=== PATIENT | female | born 1955 | race Caucasian/White ===

== ENCOUNTER 2017-03-30 11:34 | Emergency (ER) | payer OTHER ==
[2017-03-30 12:20] LABS: ABSOLUTE BASOPHIL COUNT 0 /CUMM (0.0-0.2); ABSOLUTE EOSINOPHIL COUNT 0.1 /CUMM (0.0-0.7); ABSOLUTE GRANULOCYTE CT 8.6 /CUMM (1.4-6.5); ABSOLUTE LYMPH COUNT 1.7 /CUMM (1.2-3.4); ABSOLUTE MONOCYTE COUNT 0.5 /CUMM (0.10-0.60); BASOPHIL % 0.3 % (0.0-2.0); EOSINOPHIL % 0.6 % (0-5); GRANULOCYTE % 78.4 % (42.2-75.2); HEMATOCRIT 41.5 % (37-47); MEAN CORPUSCULAR HGB 28.2 PG (27.0-31.0); MEAN CORPUSCULAR HGB CONC 33.3 G/DL (33.0-37.0); MEAN CORPUSCULAR VOLUME 84.7 FL (81.0-99.0); MEAN PLATELET VOLUME 8.1 FL (7.4-10.4); PLATELET COUNT 489 /CUMM (130-400); RBC DISTRIBUTION WIDTH 13.5 % (11.5-14.5); RED BLOOD CELL CT 4.89 /CUMM (4.20-5.40)
--- NOTE | 2017-03-30 13:06 | ED GI/GU/ABDOMINAL COMPLAINT ---
History of Present Illness General Chief Complaint: Abdominal Pain/Flank Pain Stated Complaint: R FLANK PAIN Source: patient Exam Limitations: no limitations Vital Signs & Intake/Output Vital Signs & Intake/Output Vital Signs Date Time Temp Pulse Resp B/P B/P Pulse O2 O2 Flow FiO2 Mean Ox Delivery Rate 03/30 1417 96.6 92 16 115/66 95 Room Air 03/30 1202 97.2 116 18 137/89 97 Room Air Allergies Coded Allergies: Penicillins (Severe, DIFFICULTY BREATHING 03/30/17) Reconcile Medications Ciprofloxacin HCl (Cipro) 500 MG TABLET 1 TAB PO BID DIVERTICULTIIS Metronidazole (Flagyl) 500 MG TABLET 1 TAB PO BID DIVERTIULITIS Tylenol With Codeine (Tylenol With Codeine #3 Tablet) 300 MG-30 MG TABLET 1 TAB PO Q4-6 PRN PRN PAIN Triage Note: PT C/O RT FLANK PAIN RADIATING INTO GROIN. WAS DX WITH UTI ON FRIDAY BY HER PCP AND PUT ON CIPRO. IS HAVING INCREASED FREQUENCY URINTION. HAS HX OF KIDNEY STONES WELL. Triage Nurses Notes Reviewed? yes LMP (ages 10-50): post menopausal, unknown ? n Is pt currently ? No Onset: Abrupt Duration: day(s): (2-3), constant, continues in ED, getting worse Timing: single episode today Quality/Severity: cramping, moderate, sharpness Severity Numbers: 7 Location: left lower quadrant, right flank, right lower quadrant, suprapubic Radiation: groin (rt groin) Activities at Onset: none Prior Abdominal Problems: similar symptoms (kidney stones) Past Sexual History: Unobtainable at this time No Modifying Factors: none Modifying Factors: Worsens With: movement, palpation. Associated Symptoms: abdominal pain, urinary frequency (and urgency ) HPI: 62-year-old female past medical history of frequent UTIs presents for evaluation of abdominal pain frequency urgency for the past 3 days. Patient states symptoms started 3 days ago she went to her primary care doctor and was diagnosed with a urinary tract infection. She was treated with 3 days of Cipro her last dose was today. She states that she continues to have pain mostly in her right flank right lower quadrant superpubic area. She describes this as cramping and rates it as a 7 out of 10. She does not take any pain medicine. She denies any fevers or chills. The pain radiates into the right groin. She does have a history of kidney stones and feels like this is somewhat similar. She does report some nausea but no vomiting or diarrhea. No vaginal discharge or bleeding. No melena or bright red blood per rectum. No recent surgeries. No chest pain or shortness of breath. (Fransico Velez) Past History Travel History Traveled to [place] past 21 day No Medical History Any Pertinent Medical History? see below for history Renal: KIDNEY STONES UTI'S Surgical History Surgical History: non-contributory Psychosocial History What is your primary language Romanian Tobacco Use: Never used Family History Hx Contributory? No (Fransico Velez) Review of Systems Review of Systems Constitutional: Reports: no symptoms. EENTM: Reports: no symptoms. Respiratory: Reports: no symptoms. Cardiovascular: Reports: no symptoms. GI: Reports: see HPI, abdominal pain, nausea. Genitourinary: Reports: see HPI, frequency, hematuria, urgency. Musculoskeletal: Reports: see HPI, back pain. Skin: Reports: no symptoms. Neurological/Psychological: Reports: no symptoms. Hematologic/Endocrine: Reports: no symptoms. Immunologic/Allergic: Reports: no symptoms. All Other Systems: Reviewed and Negative (Fransico Velez) Physical Exam Physical Exam General Appearance: well developed/nourished, no apparent distress, alert, awake Head: atraumatic, normal appearance Eyes: Bilateral: normal appearance, PERRL, EOMI, normal inspection. Ears, Nose, Throat, Mouth: hearing grossly normal, moist mucous membrane Neck: normal inspection, supple, full range of motion Respiratory: normal breath sounds, chest non-tender, no respiratory distress, lungs clear Cardiovascular: regular rate/rhythm, normal peripheral pulses Peripheral Pulses: 2+ radial (R), 2+ radial (L) Gastrointestinal: normal bowel sounds, soft, no organomegaly, tenderness (rt flank, suprapubic rlq) Back: normal inspection, normal range of motion, no vertebral tenderness, no cvat Extremities: normal range of motion, no edema Neurologic/Psych: no motor/sensory deficits, awake, alert, oriented x 3, normal gait, normal mood/affect Skin: intact, normal color, warm/dry Core Measures ACS in differential dx? No Sepsis Present: No Sepsis Focused Exam Completed? No (Fransico Velez) Progress Differential Diagnosis: appendicitis, biliary colic, bowel obstruction, cholecystitis, diverticulitis, gastritis, kidney stone, ovarian cyst, ovarian torsion, pancreatitis, SBO, UTI/pyelo Plan of Care: Orders Procedure Date/time Status URINALYSIS 03/30 1146 Complete COMPREHENSIVE METABOLIC PANEL 03/30 1146 Complete CBC WITHOUT DIFFERENTIAL 03/30 1146 Complete Laboratory Tests 03/30/17 1219: Urinalysis LIGHT H, Urine Color STRAW, Urine Clarity CLEAR, Urine pH 6.5, Ur Specific Calcium <= 1.005, Urine Protein NEG, Urine Ketones NEG, Urine Nitrite NEG, Urine Bilirubin NEG, Urine Urobilinogen 0.2, Ur Leukocyte Esterase SMALL H , Ur Microscopic SEDIMENT EXAMINED, Urine RBC 1-3, Urine WBC 5-10 H, Ur Epithelial Cells FEW, Urine Bacteria RARE H, Urine Mucus RARE, Urine Hemoglobin TRACE-INTACT, Urine Glucose NEG 03/30/17 1208: Anion Gap 16, Estimated GFR > 60, BUN/Creatinine Ratio 14.3, Glucose 97, Calcium 10.0, Total Bilirubin 0.3, AST 29, ALT 39, Alkaline Phosphatase 95, Total Protein 8.2, Albumin 4.6, Globulin 3.6, Albumin/Globulin Ratio 1.3, CBC w Diff NO MAN DIFF REQ, RBC 4.89, MCV 84.7, MCH 28.2, MCHC 33.3, RDW 13.5, MPV 8.1, Gran % 78.4 H, Lymphocytes % 15.8 L, Monocytes % 4.9, Eosinophils % 0.6, Basophils % 0.3, Absolute Granulocytes 8.6 H, Absolute Lymphocytes 1.7, Absolute Monocytes 0.5, Absolute Eosinophils 0.1, Absolute Basophils 0 Patient seen and evaluated. She has pain in her right flank and right lower quadrant it's pubic area. She also reports urinary frequency and urgency. She is taking Cipro for the past 3 days. Blood work shows a mildly elevated white blood cell count of 11 with a left shift. CT scan shows evidence of acute diverticulitis of the descending colon. Reevaluation of patient's abdomen does show some mild left lower quadrant tenderness. No rebound or guarding. No kidney stones. Patient will be treated with Cipro and Flagyl for possible acute diverticulitis. Follow-up with primary care doctor and gastroenterology. Patient appears clinically well she is able to tolerate food and fluids here. Discussed return precautions in detail. Patient appears chronically well and agrees the plan. Diagnostic Imaging: Viewed by Me: CT Scan. Discussed w/RAD: CT Scan. Radiology Impression: PATIENT: ADDY JENKINS PRESENT AGE: 62 PATIENT ACCOUNT NO: [id number] : 57 LOCATION: [facility] ORDERING PHYSICIAN: Fransico TERRAZAS SERVICE DATE: 03/30/17 EXAM TYPE: CAT - CT ABD & PELVIS W/O IV CONTRAS EXAMINATION: CT ABDOMEN AND PELVIS WITHOUT CONTRAST CLINICAL INFORMATION: Right flank pain radiating to the right lower quadrant and right groin. COMPARISON: None available. TECHNIQUE: Multidetector volumetric imaging was performed from the superior aspect of the liver through the pubic symphysis. Sagittal and coronal reformatted images were obtained on the technologist's workstation. FINDINGS: The lung bases are clear. Limited evaluation of the unenhanced liver, spleen, adrenal glands, gallbladder, and pancreas reveals no definite abnormality. The kidneys are symmetric in size without evidence of hydronephrosis or nephrolithiasis. There is focal inflammation surrounding a diverticulum along the dorsal aspect of the descending colon on image 33 of series 2 suggesting acute diverticulitis. There is no pericolonic abscess and there is no free air. There is diffuse colonic diverticulosis. The appendix is normal. There is no free air and there is no intra-abdominal free fluid. No mesenteric or retroperitoneal adenopathy. The pelvic viscera are normal. No pelvic adenopathy. No free fluid within the pelvis. There are no acute osseous abnormalities. There is multilevel degenerative disc disease and facet arthropathy throughout the lumbar spine. No significant soft tissue abnormality. IMPRESSION: - There is focal inflammation surrounding a diverticulum along the dorsal aspect of the descending colon on image 33 of series 2 suggesting acute diverticulitis. There is no pericolonic abscess and there is no free air. - There are no radiopaque renal or ureteral calculi. No hydroureteronephrosis. The appendix is normal. DICTATED BY: Miguel A Gu MD DATE/TIME DICTATED:03/30/171411 CLIENT SERVICE SUPERVISOR:JEANNE DATE/ TIME TRANSCRIBED:03/30/171411 CONFIDENTIAL, DO NOT COPY WITHOUT APPROPRIATE AUTHORIZATION. Initial ED EKG: none (Narayan TERRAZAS,Fransico) Departure Departure Disposition: HOME OR SELF CARE Condition: Stable Clinical Impression Primary Impression: Acute diverticulitis Referrals: Antonio ALICEA,Giacomo Masters (PCP/Family) Additional Instructions: Rest and drink plenty of fluids. Take both antibiotics as directed for the full course. Make a follow-up with YOUr primary care doctor and your automotive product engineer as soon as possible. Monitor symptoms return with worsening pain, fevers, unable tolerate fluids or any other concerns. Departure Forms: Customer Survey General Discharge Information Prescriptions: Current Visit Scripts Ciprofloxacin HCl (Cipro) 1 TAB PO BID #28 TAB Metronidazole (Flagyl) 1 TAB PO BID #42 TAB Tylenol With Codeine (Tylenol With Codeine #3 Tablet) 1 TAB PO Q4-6 PRN PRN PAIN #10 TAB (Fransico Velez) PA/[employer] Co-Sign Statement Statement: ED Attending supervision documentation- [] I saw and evaluated the patient. I have also reviewed all the pertinent lab results and diagnostic results. I agree with the findings and the plan of care as documented in the PA's/[employer]'s documentation. [X] I have reviewed the ED Record and agree with the PA's/[employer]'s documentation. [] Additions or exceptions (if any) to the PAs/[employer]'s note and plan are summarized below: [] (Pal ALICEA,Shirley)
[2017-03-30 14:17] VITALS: BP 115/66
--- NOTE | 2017-03-30 14:23 | CT SCAN REPORT ---
EXAMINATION: CT ABDOMEN AND PELVIS WITHOUT CONTRAST CLINICAL INFORMATION: Right flank pain radiating to the right lower quadrant and right groin. COMPARISON: None available. TECHNIQUE: Multidetector volumetric imaging was performed from the superior aspect of the liver through the pubic symphysis. Sagittal and coronal reformatted images were obtained on the technologist's workstation. FINDINGS: The lung bases are clear. Limited evaluation of the unenhanced liver, spleen, adrenal glands, gallbladder, and pancreas reveals no definite abnormality. The kidneys are symmetric in size without evidence of hydronephrosis or nephrolithiasis. There is focal inflammation surrounding a diverticulum along the dorsal aspect of the descending colon on image 33 of series 2 suggesting acute diverticulitis. There is no pericolonic abscess and there is no free air. There is diffuse colonic diverticulosis. The appendix is normal. There is no free air and there is no intra-abdominal free fluid. No mesenteric or retroperitoneal adenopathy. The pelvic viscera are normal. No pelvic adenopathy. No free fluid within the pelvis. There are no acute osseous abnormalities. There is multilevel degenerative disc disease and facet arthropathy throughout the lumbar spine. No significant soft tissue abnormality. IMPRESSION: - There is focal inflammation surrounding a diverticulum along the dorsal aspect of the descending colon on image 33 of series 2 suggesting acute diverticulitis. There is no pericolonic abscess and there is no free air. - There are no radiopaque renal or ureteral calculi. No hydroureteronephrosis. The appendix is normal.
[2017-03-30] MEDS ORDERED: FLAGYL500 MG PO (14:39)
[2017-03-30] MEDS ORDERED: TYLENOL WITH C1 EACH PO (14:39)
[2017-03-30] MEDS ORDERED: CIPRO500 M1 PO (14:39)
== END 2017-03-30 14:52 ==
LOC: ERH 11:34
PROVIDERS: Physician Assistant Medical
DX: K57.92 Diverticulitis of intestine, part unspecified, without perforation or abscess without bleeding (principal)
CPT/HCPCS: 74176; 81001; 96372; J1885; J3101